=== PATIENT | female | born 1975 | race Hispanic/Latino ===

== ENCOUNTER 2024-11-12 13:11 | Emergency (ER) | payer BC ==
[2024-11-12 14:23] LABS: #Basophils 0.1 thou/uL (0.0-0.2); #Eosinophils 0.3 thou/uL (0.0-0.7); #Lymphocytes 2.9 thou/uL (1.20-3.40); #Neutrophils 5.3 thou/uL (1.40-6.50); %Basophils 0.7 % (0.0-1.0); %Eosinophils 3.5 % (0.0-10.0); %Lymphocytes 30.2 % (21.0-51.0); %Monocytes 10.2 % (0.0-10.0); %Neutrophils 55.3 % (42.0-75.0); Hematocrit 41.2 % (36.0-47.0); Hemoglobin 13.5 g/dL (12.0-16.0); Mean Corpuscular HGB CONC 32.8 g/dL (32.0-36.0); Mean Corpuscular Volume 91.6 fl (78.0-98.0); Mean Platelet Volume 5.5 fL (7.4-10.4); Platelet Count 254 10x3/uL (130-400); RBC Distribution Width 11.6 % (11.5-14.5); White Blood Cell (WBC) Count 9.5 10x3/uL (4.8-10.8)
[2024-11-12 14:35] LABS: Anion Gap 14 mmol/L (10-20); BUN (Urea Nitrogen) 16 mg/dL (9.8-20.1); Calc. Creatinine Clearance 0 mL/min (70-130); Calcium 9.1 mg/dL (7.8-10.44); Carbon Dioxide 24 mmol/L (22-29); Chloride 106 mmol/L (98-107); Estimated GFR 88; Glucose 79 mg/dL (70-105); Potassium 3.9 mmol/L (3.5-5.1); Sodium 140 mmol/L (136-145)
[2024-11-12] MEDS ORDERED: Naproxen 500 MG TAB ONE (15:48)
== END 2024-11-12 16:22 | disposition home or self-care (01) ==
LOC: NAV ERS 13:11
DX: R23.8 Other skin changes (principal); I10 Essential (primary) hypertension; R51.9 Headache, unspecified; Z79.899 Other long term (current) drug therapy
CPT/HCPCS: 36415; 70360; 70491; 80048; 85025; 86140

== ENCOUNTER 2025-02-01 18:19 | Emergency (ER) | payer OTHER, BC ==
[2025-02-01] MEDS ORDERED: Methocarbamol 500 MG TAB ONE ×2 (18:50→18:57)
== END 2025-02-01 19:07 | disposition home or self-care (01) ==
LOC: NAV ERS 18:19
DX: S39.012A Strain of muscle, fascia and tendon of lower back, initial encounter (principal); I10 Essential (primary) hypertension; E78.00 Pure hypercholesterolemia, unspecified; Z79.899 Other long term (current) drug therapy; V89.2XXA Person injured in unspecified motor-vehicle accident, traffic, initial encounter; Y93.89 Activity, other specified
CPT/HCPCS: 96372; J1885

== ENCOUNTER 2025-02-14 18:38 | Emergency (ER) | payer BC ==
[2025-02-14] MEDS ORDERED: Acetaminophen 500 MG TAB ONE (19:05)
[2025-02-14] MEDS ORDERED: Losartan 50 MG TAB ONE (19:06)
== END 2025-02-14 19:17 | disposition home or self-care (01) ==
LOC: NAV ERS 18:38
DX: U07.1 COVID-19 (principal); I10 Essential (primary) hypertension; Z79.899 Other long term (current) drug therapy
CPT/HCPCS: 99283

== ENCOUNTER 2025-06-14 07:40 | Emergency (ER) | payer BC, OTHER ==
[2025-06-14] MEDS ORDERED: Lidocaine 1% (PF) 30 ML VIAL ONE (07:56)
[2025-06-14] MEDS ORDERED: Ibuprofen 200 MG TAB ONE (07:56)
[2025-06-14] MEDS ORDERED: Lidocaine 1% w/Epinephrine 1:100K 20 ML VIAL ONE (08:18)
[2025-06-14] MEDS ORDERED: Bacitracin 1 PK ONE (09:09)
[2025-06-14] MEDS ORDERED: Amoxicillin/Potassium Clav 875 MG TAB ONE (09:10)
== END 2025-06-14 09:25 | disposition home or self-care (01) ==
LOC: NAV ERS 07:40
DX: S51.851A Open bite of right forearm, initial encounter (principal); I10 Essential (primary) hypertension; E78.00 Pure hypercholesterolemia, unspecified; Z23 Encounter for immunization; Z79.899 Other long term (current) drug therapy; W54.0XXA Bitten by dog, initial encounter; Y93.89 Activity, other specified
CPT/HCPCS: 12002; 90471; 90715; J2003